=== PATIENT | female | born 1950 | race Caucasian/White ===

== ENCOUNTER 2020-07-15 13:16 | Outpatient (CLI) | payer MEDICARE | END 2020-07-15 13:17 | disposition home or self-care (01) | LOC: COV 13:16 | PROVIDERS: ATTEND Family Medicine | DX: M79.10 Myalgia, unspecified site (principal); R53.83 Other fatigue; R68.83 Chills (without fever); R19.7 Diarrhea, unspecified; Z20.828 Contact with and (suspected) exposure to other viral communicable diseases ==

== ENCOUNTER 2020-07-20 16:39 | Outpatient (CLI) | payer MEDICARE | END 2020-07-20 16:40 | disposition home or self-care (01) | LOC: COV 16:39 | PROVIDERS: ATTEND Family Medicine | DX: R06.02 Shortness of breath (principal); M79.10 Myalgia, unspecified site; R53.83 Other fatigue; R68.83 Chills (without fever); R19.7 Diarrhea, unspecified; Z20.828 Contact with and (suspected) exposure to other viral communicable diseases ==